=== PATIENT | female | born 1945 | race African-American/Black ===

== ENCOUNTER 2024-08-17 11:58 | Inpatient (IN) | payer OTHER ==
[2024-08-17] MEDS ORDERED: PIPERACILLIN/TAZOB 3.375 GM 3.375 GM/50 ML BAG IVPB ONE (13:19)
[2024-08-17] MEDS: PIPERACILLIN/TAZOB 3.375 GM 3.375 GM in DEXTROSE 5%-WATER - 50 ML IVPB ONE (13:34)
[2024-08-17 13:53] LABS: ABSOLUTE IMMATURE GRANULOCYTES 0.04 x10^3/uL (0.0-0.031); BASOPHILS # 0.06 x10^3/uL (0.01-0.08); EOSINOPHIL % 4.6 % (0.7-5.8); EOSINOPHILS # 0.41 x10^3/uL (0.04-0.36); HEMATOCRIT 41.7 % (34.1-44.9); HEMOGLOBIN 12.7 g/dL (11.2-15.7); MCHC 30.5 g/dl (32.2-35.5); MEAN CELL VOLUME 90.1 fl (79.4-94.8); MEAN PLT VOLUME 11.5 fl (9.4-12.3); MONOCYTE # 0.86 x10^3/uL (0.24-0.86); MONOCYTE % 9.5 % (4.7-12.5); PLATELET COUNT 234 x10^3/uL (182-369); RDW 14.5 % (12.4-16.6)
[2024-08-17 14:01] LABS: INR 1.46 (0.83-1.09); PROTHROMBIN TIME (PATIENT) 15.9 SEC (9.7-13.0)
[2024-08-17 14:04] LABS: ACTIVATED PTT 32.5 SECONDS (25.2-36.5)
[2024-08-17 14:20] LABS: POTASSIUM 4.9 mmol/L (3.5-5.1)
[2024-08-17 14:22] LABS: CALCIUM 9.7 mg/dL (8.5-10.1)
[2024-08-17 14:23] LABS: ALBUMIN 3.3 g/dl (3.4-5.0); BLOOD UREA NITROGEN 24.2 mg/dL (7-18)
[2024-08-17 14:26] LABS: CREATININE 1.1 mg/dL (0.55-1.3)
[2024-08-17 14:27] LABS: BILIRUBIN,TOTAL 0.5 mg/dL (0.2-1)
[2024-08-17 14:28] LABS: TOT PROT 8.3 g/dl (6.4-8.2)
[2024-08-17 14:35] LABS: ERYTHROCYTE SEDIMENTATION RATE 72 mm/hr (0-30)
[2024-08-17] MEDS ORDERED: VANCOMYCIN/WATER 1250 MG 1,250 MG/250 ML BAG IVPB ONE (16:07)
[2024-08-17] MEDS: VANCOMYCIN/WATER 1250 MG 1,250 MG/250 ML BAG IVPB ONE (16:15)
[2024-08-17] MEDS: PIPERACILLIN/TAZOB 2.25 GM 2.25 GM in DEXTROSE 5%-WATER - 50 ML IVPB SCH (17:42)
[2024-08-17 19:55] VITALS: BMI 27.8
[2024-08-17] MEDS: ROSUVASTATIN CA 5 MG TABLET PO SCH (21:07)
[2024-08-18] MEDS: FUROSEMIDE 40 MG TABLET (FP) PO SCH (06:26)
[2024-08-18] MEDS: EMPAGLIFLOZIN (JARDIANCE) 10 MG TABLET PO SCH (06:26)
[2024-08-18 08:12] LABS: HEMOGLOBIN 12.2 g/dL (11.2-15.7); MCHC 31.3 g/dl (32.2-35.5); MEAN CELL VOLUME 88.6 fl (79.4-94.8); MEAN PLT VOLUME 10.9 fl (9.4-12.3); PLATELET COUNT 202 x10^3/uL (182-369); RDW 14.4 % (12.4-16.6)
[2024-08-18 08:28] LABS: INR 1.36 (0.83-1.09)
[2024-08-18 08:31] LABS: ACTIVATED PTT 31.8 SECONDS (25.2-36.5)
[2024-08-18 08:35] LABS: POTASSIUM 3.6 mmol/L (3.5-5.1)
[2024-08-18 08:46] LABS: BLOOD UREA NITROGEN 21.3 mg/dL (7-18); MAGNESIUM 1.9 mg/dL (1.8-2.4)
[2024-08-18 08:49] LABS: PHOSPHOROUS 3.2 mg/dL (2.5-4.9)
[2024-08-18 08:50] LABS: CREATININE 1.1 mg/dL (0.55-1.3); LDL CHOLESTEROL (ONLY SJRH) 93 mg/dL (5-100)
[2024-08-18 08:51] LABS: BILIRUBIN,TOTAL 0.7 mg/dL (0.2-1); CHOLESTEROL 147 mg/dL (50-200); TOT PROT 7.3 g/dl (6.4-8.2)
[2024-08-18 08:53] LABS: HDL CHOLESTEROL 41 mg/dL (40-60)
[2024-08-18] MEDS: DIGOXIN 0.125 MG TABLET PO SCH (11:45)
[2024-08-18] MEDS: GENTAMICIN SO4 0.1% TOPICAL OINTMENT 15 GM/TUBE TUBE TP SCH (11:51)
[2024-08-18] MEDS: CEFTRIAXONE 2 GM-D5W BAG 2 GM/50 ML BAG IVPB SCH (13:54)
[2024-08-18] MEDS: LOSARTAN POTASSIUM 25 MG TABLET PO SCH (13:56)
[2024-08-18] MEDS ORDERED: HEPARIN NA (PORCINE) 5,000 UNITS/ML 1ML VIAL ONE (14:07)
[2024-08-18] MEDS ORDERED: NITROGLYCERIN 50 MG/10 ML VIAL IVPB ONE (14:07)
[2024-08-18] MEDS ORDERED: LIDOCAINE HCL 1%, 10 MG/ML (20ML VIAL) ONE (14:07)
[2024-08-18] MEDS: HEPARIN NA (PORCINE) 5,000 UNITS/ML 1ML VIAL SQ SCH (21:38)
[2024-08-19] MEDS: PIPERACILLIN/TAZOB 2.25 GM 2.25 GM in DEXTROSE 5%-WATER - 50 ML IVPB SCH (08:51)
[2024-08-19 09:00] LABS: ABSOLUTE IMMATURE GRANULOCYTES 0.04 x10^3/uL (0.0-0.031); BASOPHILS # 0.08 x10^3/uL (0.01-0.08); EOSINOPHIL % 5.2 % (0.7-5.8); EOSINOPHILS # 0.38 x10^3/uL (0.04-0.36); HEMATOCRIT 39.7 % (34.1-44.9); HEMOGLOBIN 12.2 g/dL (11.2-15.7); MCHC 30.7 g/dl (32.2-35.5); MEAN CELL VOLUME 88.8 fl (79.4-94.8); MEAN PLT VOLUME 11.3 fl (9.4-12.3); MONOCYTE # 0.63 x10^3/uL (0.24-0.86); MONOCYTE % 8.7 % (4.7-12.5); PLATELET COUNT 211 x10^3/uL (182-369); RDW 14.6 % (12.4-16.6)
[2024-08-19 09:05] LABS: INR 1.36 (0.83-1.09); PROTHROMBIN TIME (PATIENT) 14.8 SEC (9.7-13.0)
[2024-08-19 09:22] LABS: POTASSIUM 3.6 mmol/L (3.5-5.1)
[2024-08-19 10:13] LABS: ALBUMIN 3.1 g/dl (3.4-5.0); BLOOD UREA NITROGEN 22.6 mg/dL (7-18); CALCIUM 9.3 mg/dL (8.5-10.1)
[2024-08-19 10:14] LABS: MAGNESIUM 2.1 mg/dL (1.8-2.4)
[2024-08-19 10:16] LABS: CREATININE 1.2 mg/dL (0.55-1.3)
[2024-08-19 10:17] LABS: BILIRUBIN,TOTAL 0.5 mg/dL (0.2-1); TOT PROT 7.4 g/dl (6.4-8.2)
[2024-08-19] MEDS ORDERED: LIDOCAINE HCL 2% 100 MG/5 ML DISP.SYRIN ONE (12:23)
[2024-08-19] MEDS ORDERED: MIDAZOLAM HCL 2 MG/2 ML SINGLE DOSE VIAL ONE (12:23)
[2024-08-19] MEDS ORDERED: PROPOFOL 20 ML ONE (12:23)
[2024-08-19] MEDS: LIDOCAINE HCL 1%, 10 MG/ML (20ML VIAL) INF ONE (12:30)
[2024-08-19] MEDS ORDERED: PROTAMINE SULFATE 50 MG/5 ML VIAL ONE (12:54)
[2024-08-19] MEDS ORDERED: ONDANSETRON 4 MG/2 ML VIAL IVPUSH PRN (13:08)
[2024-08-19] MEDS: LACTATED RINGERS SOLUTION 1,000 ML IV SCH (15:05)
[2024-08-19] MEDS: FUROSEMIDE 40 MG TABLET (FP) PO SCH (15:41)
[2024-08-19] MEDS: DEXTROSE 50%-WATER 25 GM/50 ML DISP.SYRIN IVPUSH ONE (18:32)
[2024-08-19] MEDS: HEPARIN NA (PORCINE) 5,000 UNITS/ML 1ML VIAL SQ SCH (21:53)
[2024-08-19] MEDS: ROSUVASTATIN CA 5 MG TABLET PO SCH (21:54)
[2024-08-20] MEDS: EMPAGLIFLOZIN (JARDIANCE) 10 MG TABLET PO SCH (06:57)
[2024-08-20 08:36] LABS: ABSOLUTE IMMATURE GRANULOCYTES 0.05 x10^3/uL (0.0-0.031); BASOPHILS # 0.04 x10^3/uL (0.01-0.08); EOSINOPHILS # 0.33 x10^3/uL (0.04-0.36); HEMATOCRIT 39.6 % (34.1-44.9); MCHC 30.3 g/dl (32.2-35.5); MEAN CELL VOLUME 89.4 fl (79.4-94.8); MEAN PLT VOLUME 12.1 fl (9.4-12.3); MONOCYTE # 0.89 x10^3/uL (0.24-0.86); MONOCYTE % 10.8 % (4.7-12.5); PLATELET COUNT 222 x10^3/uL (182-369); RDW 14.6 % (12.4-16.6)
[2024-08-20 08:41] LABS: INR 1.28 (0.83-1.09); PROTHROMBIN TIME (PATIENT) 14.1 SEC (9.7-13.0)
[2024-08-20 09:00] LABS: POTASSIUM 3.5 mmol/L (3.5-5.1)
[2024-08-20 09:06] LABS: ALBUMIN 3.1 g/dl (3.4-5.0)
[2024-08-20 09:07] LABS: BLOOD UREA NITROGEN 19.8 mg/dL (7-18); CALCIUM 9.7 mg/dL (8.5-10.1); MAGNESIUM 1.9 mg/dL (1.8-2.4)
[2024-08-20 09:10] LABS: CREATININE 1.1 mg/dL (0.55-1.3)
[2024-08-20 09:11] LABS: BILIRUBIN,TOTAL 0.6 mg/dL (0.2-1); TOT PROT 7.4 g/dl (6.4-8.2)
[2024-08-20] MEDS: LOSARTAN POTASSIUM 25 MG TABLET PO SCH (09:35)
[2024-08-20] MEDS: CEFTRIAXONE 2 GM-D5W BAG 2 GM/50 ML BAG IVPB SCH (09:49)
[2024-08-20] MEDS: DIGOXIN 0.125 MG TABLET PO SCH (09:49)
[2024-08-20 12:41] VITALS: RESP 18
[2024-08-20 14:25] VITALS: BP 139/81; PULSE 94; TEMP 97.5
[2024-08-20] MEDS: AMOX TR/POT CLAV 875MG/125MG TABLETS (FP) PO SCH (18:48)
[2024-08-20] MEDS ORDERED: APIXABAN 5 MG TABLET PO SCH (22:00)
== END 2024-08-20 20:29 | DRG 253 ==
LOC: JER 11:58 → JERBED 14:07 → OBSVTOIN 15:09 → J8W 16:26
PROVIDERS: ADMIT Internal Medicine; ATTEND Nurse Practitioner Family
PROC: 047L3ZZ Dilation of Left Femoral Artery, Percutaneous Approach (ICD-10-PCS; 2024-08-19)
PROC: 3E05317 Introduction of Other Thrombolytic into Peripheral Artery, Percutaneous Approach (ICD-10-PCS; 2024-08-19)
PROC: B41GZZZ Fluoroscopy of Left Lower Extremity Arteries (ICD-10-PCS; principal; 2024-08-19 12:00)
DX: I70.262 Atherosclerosis of native arteries of extremities with gangrene, left leg (principal); I42.9 Cardiomyopathy, unspecified; I50.22 Chronic systolic (congestive) heart failure; F03.90 Unspecified dementia, unspecified severity, without behavioral disturbance, psychotic disturbance, mood disturbance, and anxiety; L97.529 Non-pressure chronic ulcer of other part of left foot with unspecified severity; I77.9 Disorder of arteries and arterioles, unspecified; I25.10 Atherosclerotic heart disease of native coronary artery without angina pectoris
CPT/HCPCS: 36415; 71045-TC-FY; 73630-TC-LT; 76000-TC-FY; 80053; 80061; 82962; 83036; 83735; 84100; 85025; 85027; 85610; 85651; 85730; 86140; 86850; 86900; 86901; 87635; 93005; 93010; 93306-TC; 94760; 97116-GP; 97161-GP; 97597; 99285-25; C1760; C1894; G0378